=== PATIENT | male | born 1970 | race Caucasian/White ===

== ENCOUNTER 2019-01-01 12:35 | Outpatient (CLI) | payer OTHER | END 2019-01-01 12:36 | disposition home or self-care (01) | PROVIDERS: ATTEND Family Medicine | DX: Z82.49 Family history of ischemic heart disease and other diseases of the circulatory system (principal) | CPT/HCPCS: 93017 ==

== ENCOUNTER 2020-09-22 08:16 | Outpatient (CLI) | payer OTHER ==
--- NOTE | 2020-09-22 09:00 | RAD ---
CHEST 2 VIEWS: HISTORY: Dyspnea. COMPARISON: 03/30/2020. FINDINGS: Heart size is normal. The lungs are clear. No confluent pneumonia, overt edema, or pleural effusion . IMPRESSION: No significant acute intrathoracic disease. POS: RRE
== END 2020-09-22 08:17 | disposition home or self-care (01) ==
LOC: BICRAD 08:16
PROVIDERS: ATTEND Internal Medicine Critical Care Medicine
DX: R06.00 Dyspnea, unspecified (principal)
CPT/HCPCS: 71046

== ENCOUNTER 2022-12-17 12:18 | Emergency (ER) | payer SELFPAY ==
[2022-12-17 12:40] LABS: #Eosinphils 0.2 thou/uL (0.0-0.7); #Lymphocytes 2.4 thou/uL (1.20-3.40); #Monocytes 0.6 thou/uL (0.11-0.59); #Neutrophils 4.3 thou/uL (1.40-6.50); %Basophils 0.5 % (0.0-1.0); %Eosinophils 2.2 % (0.0-10.0); %Lymphocytes 31.9 % (21.0-51.0); %Monocytes 8.3 % (0.0-10.0); %Neutrophils 57.2 % (42.0-75.0); Hemoglobin 16.8 g/dL (14.0-18.0); Mean Corpuscular HGB CONC 34.4 g/dL (32.0-36.0); Mean Corpuscular Hemoglobin 32.1 pg (27.0-31.0); Mean Corpuscular Volume 93.2 fl (78.0-98.0); Mean Platelet Volume 6.9 fL (7.4-10.4); Platelet Count 237 10x3/uL (130-400); RBC Distribution Width 11.3 % (11.5-14.5); Red Blood Cell (RBC) Count 5.23 mill/uL (4.70-6.10); White Blood Cell (WBC) Count 7.5 10x3/uL (4.8-10.8)
[2022-12-17 12:56] LABS: ALT (SGPT) 26 U/L (8-55); AST (SGOT) 22 U/L (5-34); Albumin 4.6 g/dL (3.5-5.0); Alkaline Phosphatase 46 U/L (40-110); Anion Gap 14 mmol/L (10-20); BUN (Urea Nitrogen) 10 mg/dL (8.4-25.7); Calc. Creatinine Clearance 0 mL/min (70-130); Calcium 9.5 mg/dL (7.8-10.44); Carbon Dioxide 26 mmol/L (22-29); Chloride 102 mmol/L (98-107); Estimated GFR 107; Globulin 2.9 g/dL (2.4-3.5); Glucose 99 mg/dL (70-105); Lipase 15 U/L (8-78); Protein, Total 7.5 g/dL (6.0-8.3); Sodium 138 mmol/L (136-145)
== END 2022-12-17 16:41 | disposition home or self-care (01) ==
LOC: ERS 12:18
DX: R07.9 Chest pain, unspecified (principal); I10 Essential (primary) hypertension; Z79.899 Other long term (current) drug therapy
CPT/HCPCS: 36415; 71045; 80053; 83690; 84484; 85025; 93005